=== PATIENT | female | born 1965 | race African-American/Black ===

== ENCOUNTER 2021-07-05 09:56 | Emergency (ER) | payer BC ==
[2021-07-05] MEDS ORDERED: methylPREDNISolone Sod Succ/PF 125 MG/2 ML VIAL ONE (10:57)
== END 2021-07-05 11:30 | disposition home or self-care (01) ==
LOC: CSHERS 09:56
DX: M54.50 Low back pain, unspecified (principal); D50.9 Iron deficiency anemia, unspecified; F17.290 Nicotine dependence, other tobacco product, uncomplicated; Z79.899 Other long term (current) drug therapy
CPT/HCPCS: 96372; 99283; J2930